=== PATIENT | male | born 1990 | race Asian ===

== ENCOUNTER 2018-08-23 17:05 | Emergency (ER) | payer OTHER ==
[~2018-08-23] VITALS: Ht 165.1 cm; Wt 111.3 kg
[2018-08-23 17:10] VITALS: BP 169/110; Ht 165.1 cm; Wt 111.3 kg
== END 2018-08-23 17:58 | disposition home or self-care (01) ==
LOC: ED 17:05
DX: S61.211A Laceration without foreign body of left index finger without damage to nail, initial encounter (principal); W26.0XXA Contact with knife, initial encounter; Y93.89 Activity, other specified; Y92.89 Other specified places as the place of occurrence of the external cause; Y99.8 Other external cause status
CPT/HCPCS: 90715; A4570; J2001